=== PATIENT | male | born 1980 | race Caucasian/White ===

== ENCOUNTER 2024-02-02 04:34 | Emergency (ER) | payer OTHER ==
[2024-02-02] MEDS ORDERED: Bacitracin 1 PK ONE (05:16)
[2024-02-02] MEDS ORDERED: Lactated Ringer's 1,000 ML ONE (05:16)
[2024-02-02] MEDS ORDERED: fentaNYL 50 mcg/mL 1 mL Vial ONE (05:16)
[2024-02-02] MEDS ORDERED: Boostrix 0.5 ML (Tdap) VIAL (>/=7 yrs of age) ONE (05:17)
[2024-02-02 05:22] LABS: #Basophils 0.1 thou/uL (0.0-0.2); #Eosinphils 0.2 thou/uL (0.0-0.7); #Lymphocytes 2.9 thou/uL (1.20-3.40); #Monocytes 0.6 thou/uL (0.11-0.59); #Neutrophils 6.6 thou/uL (1.40-6.50); %Basophils 1.3 % (0.0-1.0); %Eosinophils 2.1 % (0.0-10.0); %Lymphocytes 27.4 % (21.0-51.0); %Monocytes 5.7 % (0.0-10.0); %Neutrophils 63.6 % (42.0-75.0); Hematocrit 47.8 % (42.0-52.0); Hemoglobin 15.6 g/dL (14.0-18.0); Mean Corpuscular HGB CONC 32.5 g/dL (32.0-36.0); Mean Corpuscular Hemoglobin 33.7 pg (27.0-31.0); Mean Corpuscular Volume 103.5 fl (78.0-98.0); Mean Platelet Volume 5.9 fL (7.4-10.4); Platelet Count 229 10x3/uL (130-400); Red Blood Cell (RBC) Count 4.62 mill/uL (4.70-6.10); White Blood Cell (WBC) Count 10.4 10x3/uL (4.8-10.8)
[2024-02-02 05:36] LABS: Prothrombin Time 13.2 sec (12.0-14.7)
[2024-02-02 05:38] LABS: Acetaminophen Less than 10 mcg/mL (10.0-30.0); Alcohol 249.3 mg/dL (Less than 10); Salicylate Less than 8.0 mg/dL (15.0-30.0)
[2024-02-02 05:44] LABS: ALT (SGPT) 40 U/L (8-55); AST (SGOT) 24 U/L (5-34); Albumin 4.2 g/dL (3.5-5.0); Alkaline Phosphatase 96 U/L (40-110); Anion Gap 19 mmol/L (10-20); BUN (Urea Nitrogen) 14 mg/dL (8.9-20.6); Bilirubin, Total 0.3 mg/dL (0.2-1.2); CK (CPK) 244 U/L (30-200); Calc. Creatinine Clearance 0 mL/min (70-130); Calcium 8.8 mg/dL (7.8-10.44); Carbon Dioxide 20 mmol/L (22-29); Chloride 109 mmol/L (98-107); Estimated GFR 103; Globulin 2.6 g/dL (2.4-3.5); Glucose 123 mg/dL (70-105); Potassium 3.7 mmol/L (3.5-5.1); Protein, Total 6.8 g/dL (6.0-8.3); Sodium 144 mmol/L (136-145)
[2024-02-02 05:47] LABS: Amphetamine Not Detected (NotDetected); Barbiturates Screen Not Detected (NotDetected); Benzodiazepine Screen Not Detected (NotDetected); Cocaine Metabolite Screen Not Detected (NotDetected); Methadone Not Detected (NotDetected); Methamphetamine Not Detected (NotDetected); Opiate Screen Not Detected (NotDetected); Oxycodone Screen Not Detected (NotDetected); Phencyclidine (PCP) Not Detected (NotDetected); THC/Cannabinoid Screen Detected (NotDetected); Tricyclic Screen Not Detected (NotDetected)
[2024-02-02] MEDS ORDERED: Thiamine HCl 200 MG/2 ML VIAL ONE (05:50)
[2024-02-02] MEDS ORDERED: Acetaminophen 500 MG TAB ONE (07:03)
[2024-02-02] MEDS ORDERED: Ketorolac Tromethamine 30 MG (1 mL) VIAL ONE (07:04)
[2024-02-02] MEDS ORDERED: Iopamidol 370 76% 100 ML VIAL ONE (09:00)
== END 2024-02-02 07:19 | disposition home or self-care (01) ==
LOC: MADERS 04:34
DX: S00.01XA Abrasion of scalp, initial encounter (principal); D75.89 Other specified diseases of blood and blood-forming organs; F10.129 Alcohol abuse with intoxication, unspecified; E11.9 Type 2 diabetes mellitus without complications; I10 Essential (primary) hypertension; F17.210 Nicotine dependence, cigarettes, uncomplicated; Z79.4 Long term (current) use of insulin; Z23 Encounter for immunization; Z79.899 Other long term (current) drug therapy; V89.2XXA Person injured in unspecified motor-vehicle accident, traffic, initial encounter
CPT/HCPCS: 36415; 70450; 71260; 72125; 74177; 80053; 80306; 80307; 82550; 85025; 85610; 85730; 86850; 86900; 86901; 90471; 90715; 94760; 96374; 96375; G0390; J1885; J3010; J3411; J7120; Q9967